=== PATIENT | male | born 1960 | race Caucasian/White ===

== ENCOUNTER 2017-12-21 16:12 | Emergency (ER) | payer OTHER ==
[2017-12-21 16:46] VITALS: BMI 29.0
[2017-12-21 16:53] VITALS: PULSE 80
--- NOTE | 2017-12-21 17:19 | ED PDOC ---
Arrival/HPI - General Chief Complaint: ENT Problem Time Seen by Provider: 12/21/17 17:15 Historian: Patient - History of Present Illness Narrative History of Present Illness (Text): 12/21/17 17:16 This 57 yo male presents to this Emergency department complaining of left ring finger bump for several months. He also stated he feels his nostrils are swollen. He admits using Afrin for rhinorrhea, 4-5 times a day for over 7 days. Patient denies other somatic complains. Time/Duration: Other (see hpi) Context: Home Past Medical History - Provider Review Nursing Documentation Reviewed: Yes - Cardiac Hx Hypertension: Yes - Pulmonary Hx Respiratory Disorders: No - Neurological Hx Neurological Disorder: No - HEENT Hx HEENT Disorder: No - Renal Hx Renal Disorder: No - Endocrine/Metabolic Hx Endocrine Disorders: No - Hematological/Oncological Hx Blood Disorders: No - Integumentary Hx Dermatological Disorder: No - Musculoskeletal/Rheumatological Hx Gout: Yes - Gastrointestinal Hx Gastrointestinal Disorders: No - Genitourinary/Gynecological Hx Genitourinary Disorders: No - Psychiatric Hx Psychophysiologic Disorder: No Hx Substance Use: No Family/Social History - Physician Review Nursing Documentation Reviewed: Yes Family/Social History: Other (noncontributory) Smoking Status: Never Smoked Hx Alcohol Use: Yes Frequency of alcohol use: Socially Hx Substance Use: No Allergies/Home Meds Allergies/Adverse Reactions: Allergies No Known Allergies Allergy (Verified 12/21/17 16:45) Home Medications: Home Meds Medication Instructions Recorded Confirmed Atenolol [Tenormin] 100 mg PO DAILY 12/21/17 12/21/17 Losartan/Hydrochlorothiazide 1 tab PO DAILY 12/21/17 12/21/17 [Hyzaar 25 mg-100 mg] Review of Systems - Review of Systems Constitutional: Normal. absent: Fatigue, Weight Change, Fevers Eyes: Normal ENT: Other (see hpi) Respiratory: Normal. absent: SOB, Cough Cardiovascular: Normal Gastrointestinal: Normal Genitourinary Male: Normal Musculoskeletal: Other (see hpi) Skin: Normal Neurological: Normal Endocrine: Normal Hemo/Lymphatic: Normal Psychiatric: Normal Physical Exam Vital Signs Temp Pulse Resp BP Pulse Ox 12/21/17 16:49 98.7 F 80 20 154/98 H 97 Temperature: Afebrile Blood Pressure: Normal Pulse: Regular Respiratory Rate: Normal Appearance: Positive for: Well-Appearing, Non-Toxic, Comfortable Pain Distress: None Mental Status: Positive for: Alert and Oriented X 3 - Systems Exam Head: Present: Atraumatic, Normocephalic Pupils: Present: PERRL Extroacular Muscles: Present: EOMI Conjunctiva: Present: Normal Mouth: Present: Moist Mucous Membranes Pharnyx: Present: Normal. No: ERYTHEMA, EXUDATE, TONSILS ENLARGED Nose (External): Present: Atraumatic Nose (Internal): No: Engorged, Edematous, Boggy, Septal Hematoma, Epistaxis Neck: Present: Normal Range of Motion. No: Meningeal Signs, MIDLINE TENDERNESS , Paraspinal Tenderness, Lymphadenopathy Respiratory/Chest: Present: Clear to Auscultation, Good Air Exchange. No: Respiratory Distress, Accessory Muscle Use Cardiovascular: Present: Regular Rate and Rhythm, Normal S1, S2. No: Murmurs Abdomen: Present: Normal Bowel Sounds. No: Tenderness, Distention, Peritoneal Signs Back: Present: Normal Inspection Upper Extremity: Present: Normal Inspection, Normal ROM, NORMAL PULSES, Neurovascularly Intact, Capillary Refill < 2s, Other ((+) multiple small gouty tophi visualized b/l fingers. No erythema or abscess). No: Cyanosis, Edema, Tenderness, Swelling, Erythema Lower Extremity: Present: Normal Inspection. No: Edema Neurological: Present: GCS=15, CN II-XII Intact, Speech Normal Skin: Present: Warm, Dry, Normal Color. No: Rashes Psychiatric: Present: Alert, Oriented x 3, Normal Insight, Normal Concentration Medical Decision Making ED Course and Treatment: 12/21/17 17:10 I reviewed with patient the risk of using Prednisone including AVN, glaucoma, diabetes, osteoporosis. Patient understood risk, and patient agreed to have this medication. 12/21/17 17:22 Re-evaluation. Patient feels better. Discussed results and plan with patient who expresses understanding. All questions answered and there is agreement with the plan to discharge home with instructions. Patient stable for discharge. Return if symptoms persist or worsen. 12/21/17 17:27 Patient requested ABX. I told patient to wait at least 2 days before taking Z- pack, only if symptoms worsen. Re-evaluation Time: 17:23 Reassessment Condition: Re-examined, Improved Disposition/Present on Arrival - Present on Arrival Any Indicators Present on Arrival: No History of DVT/PE: No History of Uncontrolled Diabetes: No Urinary Catheter: No History of Decub. Ulcer: No History Surgical Site Infection Following: None - Disposition Have Diagnosis and Disposition been Completed?: Yes Diagnosis: Rhinitis medicamentosa, Gouty tophi of joint Disposition: HOME/ ROUTINE Disposition Time: 17:24 Patient Plan: Discharge Condition: GOOD Discharge Instructions (ExitCare): Lifestyle Changes to Manage Gout Additional Instructions: Call private doctor for follow up visit in 1-2 days. Take medication as instructed with food. STOP TAKING AFRIN. Afrin is supposed to be taken for 2- 3 days, and no more than twice a day. Ask your doctor about your gout tophi. Return to emergency if symptoms worsen.. Always rinse mouth after taking nasal spray. Wait at least 2 days before taking Z-pack, only if sinuses pressure worsen. Prescriptions: Azithromycin [Z-William] 250 mg PO DAILY #6 tab Fluticasone Propionate [Flonase] 1 spr NS DAILY #1 bottle Prednisone [Deltasone] 40 mg PO DAILY #2 tablet Referrals: [facility] [Outside] - Follow up with primary [facility] [Outside] - Follow up with primary
[2017-12-21 17:44] VITALS: BP 148/88; RESP 16; TEMP 98.1; O2SAT 99
== END 2017-12-21 17:44 | disposition home or self-care (01) ==
LOC: ED 16:12 → MERGE 16:12 → ED 17:44
DX: J31.0 Chronic rhinitis (principal); M1A.9XX1 Chronic gout, unspecified, with tophus (tophi); I10 Essential (primary) hypertension